=== PATIENT | male | born 1985 | race African-American/Black ===

== ENCOUNTER 2021-04-07 11:25 | Emergency (ER) | payer OTHER ==
[~2021-04-07] VITALS: Ht 167.6 cm; Wt 77.3 kg
[~2021-04-07 11:25] MED LIST: FLUO-191 PO
[2021-04-07] MEDS ORDERED: IBUPROFEN 600 MG TABLET PO ONE (12:15)
[2021-04-07] MEDS ORDERED: COLCHICINE 0.6 MG TABLET PO ONE (12:15)
[2021-04-07 13:43] VITALS: BP 118/65
== END 2021-04-07 14:59 | disposition home or self-care (01) ==
LOC: EMS 11:25
DX: S92.312A Displaced fracture of first metatarsal bone, left foot, initial encounter for closed fracture (principal); X58.XXXA Exposure to other specified factors, initial encounter; Y93.89 Activity, other specified; Y92.89 Other specified places as the place of occurrence of the external cause; Y99.8 Other external cause status
CPT/HCPCS: 99283